=== PATIENT | female | born 1955 | race Caucasian/White ===

== ENCOUNTER 2023-11-14 09:38 | Emergency (ER) | payer OTHER ==
[~2023-11-14] VITALS: Ht 157.5 cm; Wt 50.3 kg
[2023-11-14 09:56] VITALS: BP 132/82; PULSE 103; RESP 18; TEMP 98.1; O2SAT 94
[2023-11-14] MEDS ORDERED: AMOX500C25 PO (09:59)
[2023-11-14 10:13] VITALS: BP 132/82; PULSE 103; RESP 18; TEMP 98.1; O2SAT 94
== END 2023-11-14 10:13 | disposition home or self-care (01) ==
LOC: MED 09:38
DX: J32.9 Chronic sinusitis, unspecified (principal); Z79.899 Other long term (current) drug therapy
CPT/HCPCS: 99283